=== PATIENT | female | born 1945 | race Caucasian/White ===

== ENCOUNTER 2016-10-26 09:34 | Inpatient (IN) | payer OTHER ==
[~2016-10-26] VITALS: Ht 167.6 cm; Wt 85.8 kg
[~2016-10-26 09:34] MED LIST: ACET-1757 PO; CEFD300C2 PO; CIPR750T PO; CLOP75TA22 PO; DULO30CA2 PO; ENAL10TA PO; ENOX40SY4 SQ; INSU100C5 SQ-INSULIN; METF10002 PO; OLAN5TAB9 PO; POLY17PO5 PO; SIMV10TA PO; [UNRECOGNIZED DRUG - CODE] PO; [UNRECOGNIZED DRUG - REMARK]
[2016-10-26] MEDS ORDERED: SODIUM CHLORIDE 0.9% 1,000 ML IV ONE ×2 (09:46→10:42)
[2016-10-26] MEDS ORDERED: SODIUM CHLORIDE 0.9% 1,000ML IVBOLUS ONE ×2 (10:00→11:00)
[2016-10-26 10:15] LABS: HEMOGLOBIN 14.9 g/dL (11.7-16.4)
[2016-10-26 10:26] LABS: ASPARTATE AMINO TRANSFERASE 43 U/L (15-37); BLOOD UREA NITROGEN 18 mg/dL (7-18)
[2016-10-26 10:30] LABS: IS PT STATUS REG ER OR PRE ER? YES
[2016-10-26 10:34] LABS: DIFF TOTAL CELLS COUNTED 100 CELL DIFF
[2016-10-26 10:39] LABS: PATH.CAST-FLAG NOT PRESENT; SPERM-FLAG NOT PRESENT; SRC-FLAG NOT PRESENT; XTAL-FLAG NOT PRESENT; YLC-FLAG NOT PRESENT
[2016-10-26 10:49] LABS: VERIFY COUNTS? YES
[2016-10-26] MEDS ORDERED: FAMOTIDINE 20 MG/2 ML IVP ONE (11:00)
[2016-10-26] MEDS ORDERED: MORPHINE SULFATE 4 MG/ML, 1ML IVPush PRN ×2 (11:00→14:00)
[2016-10-26] MEDS ORDERED: ONDANSETRON 2MG/ML, 2ML IVPush ONE (11:00)
[2016-10-26] MEDS ORDERED: ACETAMINOPHEN 325 MG TABLET ONE (11:25)
[2016-10-26] MEDS ORDERED: FAMOTIDINE 20 MG/2 ML ONE (11:26)
[2016-10-26] MEDS ORDERED: ACETAMINOPHEN 325 MG TABLET PO ONE (11:30)
[2016-10-26] MEDS ORDERED: CEFTRIAXONE PMX 1GM/50ML 50 ML IV ONE (12:00)
[2016-10-26] MEDS ORDERED: OMNIPAQUE 350 MG/ML, 100ML BOTTLE ONE (12:22)
[2016-10-26] MEDS ORDERED: CEFTRIAXONE PMX 1GM/50ML 50 ML ONE (13:41)
[2016-10-26] MEDS ORDERED: DOCUSATE 100 MG CAPSULE PO PRN (14:00)
[2016-10-26] MEDS ORDERED: NITROGLYCERIN 0.4 MG BOTTLE (25 TABS) SL PRN (14:00)
[2016-10-26] MEDS ORDERED: POLYETHYLENE GLYCOL 17 GM PACKET PO PRN (14:00)
[2016-10-26] MEDS: CEFTRIAXONE PMX 1GM/50ML 50 ML IV SCH (14:00)
[2016-10-26] MEDS ORDERED: ACETAMINOPHEN 325 MG TABLET PO PRN (14:00)
[2016-10-26] MEDS ORDERED: BISACODYL 10 MG SUPP PR PRN (14:00)
[2016-10-26] MEDS ORDERED: ONDANSETRON 2MG/ML, 2ML IVP PRN (14:00)
[2016-10-26] MEDS ORDERED: HEPARIN 25,000 UNITS/500ML PMX 500 ML IV PRN (15:30)
[2016-10-26] MEDS ORDERED: HEPARIN 5,000 UNITS/ML, 1ML IV ONE (15:30)
[2016-10-26] MEDS: POTASSIUM CHLORIDE 10 MEQ in SODIUM CHLORIDE 0.9% 1,000 ML IV SCH (16:34)
[2016-10-26] MEDS: METOPROLOL TARTRATE 25 MG TABLET PO SCH (18:07)
[2016-10-26] MEDS: INSULIN REGULAR 100 UNITS/ML, 3ML VIAL SQ-INSULIN SCH ×2 (18:08→20:03)
[2016-10-26 19:40] VITALS: BP 115/76
[2016-10-26] MEDS: SIMVASTATIN 20 MG TABLET PO SCH (20:46)
[2016-10-26] MEDS: DULOXETINE 30 MG CAPSULE.DR PO SCH (20:46)
[2016-10-26] MEDS: OLANZAPINE 5 MG TABLET PO SCH (20:46)
[2016-10-26] MEDS: HEPARIN 5,000 UNITS/ML, 1ML IV PRN (23:31)
[2016-10-26 23:33] LABS: IS PT STATUS REG ER OR PRE ER? NO
[2016-10-27] MEDS: CEFTRIAXONE PMX 1GM/50ML 50 ML IV SCH ×2 (01:52→20:14)
[2016-10-27 02:06] VITALS: BP 121/79
[2016-10-27 05:53] LABS: HEMOGLOBIN 12.9 g/dL (11.7-16.4)
[2016-10-27 06:01] VITALS: BP 113/73
[2016-10-27] MEDS: METOPROLOL TARTRATE 25 MG TABLET PO SCH ×2 (06:02→20:15)
[2016-10-27] MEDS: POTASSIUM CHLORIDE 10 MEQ in SODIUM CHLORIDE 0.9% 1,000 ML IV SCH ×2 (06:02→20:14)
[2016-10-27 06:04] LABS: BLOOD UREA NITROGEN 12 mg/dL (7-18)
[2016-10-27 06:11] LABS: IS PT STATUS REG ER OR PRE ER? NO
[2016-10-27 06:16] LABS: DIFF TOTAL CELLS COUNTED 100 CELL DIFF
[2016-10-27 06:18] LABS: VERIFY COUNTS? YES
[2016-10-27] MEDS: HEPARIN 5,000 UNITS/ML, 1ML IV PRN (06:27)
[2016-10-27] MEDS: INSULIN REGULAR 100 UNITS/ML, 3ML VIAL SQ-INSULIN SCH ×4 (07:00→20:34)
[2016-10-27 07:15] VITALS: BP 113/69
[2016-10-27] MEDS ORDERED: RISPERIDONE 0.5 MG TABLET PO PRN (08:00)
[2016-10-27] MEDS ORDERED: MAGNESIUM SULFATE PMX 2GM/50ML 50 ML IV ONE (08:00)
[2016-10-27] MEDS ORDERED: POTASSIUM PHOSPHATE 44 MEQ in SODIUM CHLORIDE 0.9% 500 ML IV ONE (08:00)
[2016-10-27] MEDS: CLOPIDOGREL 75 MG TABLET PO SCH (08:12)
[2016-10-27] MEDS: ENALAPRIL 10 MG TABLET PO SCH (08:12)
[2016-10-27 13:15] VITALS: BP 134/71
[2016-10-27] MEDS ORDERED: HEPARIN 1,000 UNITS/ML, 10ML ONE (16:50)
[2016-10-27] MEDS ORDERED: BIVALIRUDIN 250 MG ONE (16:50)
[2016-10-27] MEDS ORDERED: TICAGRELOR 90 MG TABLET ONE (16:50)
[2016-10-27] MEDS ORDERED: FENTANYL PF 100 MCG/2ML ONE (16:50)
[2016-10-27] MEDS ORDERED: MIDAZOLAM 1 MG/ML, 5ML ONE (16:50)
[2016-10-27] MEDS ORDERED: NITROGLYCERIN 5 MG/ML, 10ML ONE (16:50)
[2016-10-27] MEDS ORDERED: VERAPAMIL 2.5 MG/ML, 2ML ONE (16:50)
[2016-10-27] MEDS ORDERED: LIDOCAINE 2%, 20ML ONE (16:51)
[2016-10-27] MEDS ORDERED: ZIPRASIDONE 20 MG INJ IM ONE (18:30)
[2016-10-27] MEDS: DULOXETINE 30 MG CAPSULE.DR PO SCH (20:15)
[2016-10-27] MEDS: SIMVASTATIN 20 MG TABLET PO SCH (20:15)
[2016-10-27] MEDS: OLANZAPINE 5 MG TABLET PO SCH (20:17)
[2016-10-27 20:24] VITALS: BP 114/69
[2016-10-28 02:00] VITALS: BP 121/75
[2016-10-28 06:12] LABS: HEMOGLOBIN 12.8 g/dL (11.7-16.4)
[2016-10-28 06:28] LABS: BLOOD UREA NITROGEN 11 mg/dL (7-18)
[2016-10-28] MEDS: POTASSIUM CHLORIDE 10 MEQ in SODIUM CHLORIDE 0.9% 1,000 ML IV SCH (06:32)
[2016-10-28] MEDS: INSULIN REGULAR 100 UNITS/ML, 3ML VIAL SQ-INSULIN SCH ×4 (07:00→20:54)
[2016-10-28 07:28] VITALS: BP 134/80
[2016-10-28] MEDS: METOPROLOL TARTRATE 25 MG TABLET PO SCH ×2 (08:00→18:46)
[2016-10-28] MEDS: CEFTRIAXONE PMX 1GM/50ML 50 ML IV SCH ×2 (08:10→20:40)
[2016-10-28] MEDS: ENALAPRIL 10 MG TABLET PO SCH (08:11)
[2016-10-28] MEDS: CLOPIDOGREL 75 MG TABLET PO SCH (08:11)
[2016-10-28] MEDS: ENOXAPARIN 40 MG/0.4 ML SQ SCH (08:18)
[2016-10-28] MEDS ORDERED: PROPOFOL 10 MG/ML, 20ML ONE (11:03)
[2016-10-28] MEDS ORDERED: PHENYLEPHRINE 10 MG/ML ONE (11:03)
[2016-10-28] MEDS ORDERED: FILTER 0.22 MICRON FOR AMIODARONE IV PRN (12:30)
[2016-10-28] MEDS ORDERED: AMIODARONE 900 MG in DEXTROSE 5% 482 ML IV PRN (12:30)
[2016-10-28] MEDS ORDERED: AMIODARONE 150 MG in DEXTROSE 5% 100 ML IV ONE (12:30)
[2016-10-28 13:00] VITALS: BP 97/61
[2016-10-28 20:05] VITALS: BP 107/67
[2016-10-28 20:34] LABS: POTASSIUM,URINE RANDOM 34 mmol/L
[2016-10-28] MEDS: SIMVASTATIN 20 MG TABLET PO SCH (20:40)
[2016-10-28] MEDS: DULOXETINE 30 MG CAPSULE.DR PO SCH (20:40)
[2016-10-28] MEDS: OLANZAPINE 5 MG TABLET PO SCH (20:40)
[2016-10-29 01:27] VITALS: BP 116/75
[2016-10-29] MEDS: METOPROLOL TARTRATE 25 MG TABLET PO SCH ×2 (06:17→16:46)
[2016-10-29] MEDS: INSULIN REGULAR 100 UNITS/ML, 3ML VIAL SQ-INSULIN SCH ×4 (08:24→20:26)
[2016-10-29] MEDS: CLOPIDOGREL 75 MG TABLET PO SCH (08:25)
[2016-10-29] MEDS: ENOXAPARIN 40 MG/0.4 ML SQ SCH (08:25)
[2016-10-29] MEDS: ENALAPRIL 10 MG TABLET PO SCH (08:25)
[2016-10-29 08:28] VITALS: BP 120/83
[2016-10-29] MEDS: CEFTRIAXONE PMX 1GM/50ML 50 ML IV SCH ×2 (08:35→20:20)
[2016-10-29] MEDS: AMIODARONE 200 MG TABLET PO SCH ×2 (11:28→20:20)
[2016-10-29 12:50] VITALS: BP 120/74
[2016-10-29 18:59] VITALS: BP 116/75
[2016-10-29] MEDS: OLANZAPINE 5 MG TABLET PO SCH (20:20)
[2016-10-29] MEDS: DULOXETINE 30 MG CAPSULE.DR PO SCH (20:20)
[2016-10-29] MEDS: SIMVASTATIN 20 MG TABLET PO SCH (20:20)
[2016-10-30 02:53] VITALS: BP 127/73
[2016-10-30] MEDS: METOPROLOL TARTRATE 25 MG TABLET PO SCH (06:21)
[2016-10-30] MEDS: INSULIN REGULAR 100 UNITS/ML, 3ML VIAL SQ-INSULIN SCH ×3 (07:00→16:00)
[2016-10-30 08:40] LABS: HEMOGLOBIN 13.8 g/dL (11.7-16.4)
[2016-10-30] MEDS: ENALAPRIL 10 MG TABLET PO SCH (08:43)
[2016-10-30] MEDS: CLOPIDOGREL 75 MG TABLET PO SCH (08:43)
[2016-10-30] MEDS: AMIODARONE 200 MG TABLET PO SCH (08:43)
[2016-10-30] MEDS: ENOXAPARIN 40 MG/0.4 ML SQ SCH (08:44)
[2016-10-30] MEDS: CEFTRIAXONE PMX 1GM/50ML 50 ML IV SCH (08:44)
[2016-10-30 08:48] LABS: BLOOD UREA NITROGEN 16 mg/dL (7-18)
[2016-10-30 08:56] VITALS: BP 102/63
[2016-10-30] MEDS ORDERED: POTASSIUM CHLORIDE 20 MEQ TAB.ER.PRT PO ONE (11:00)
[2016-10-30] MEDS ORDERED: NITR0.4T SL (12:00)
[2016-10-30] MEDS ORDERED: RISP0.5T18 PO (12:00)
[2016-10-30] MEDS ORDERED: ENAL10TA PO (12:00)
[2016-10-30] MEDS ORDERED: AMIO200T42 PO (12:00)
[2016-10-30] MEDS ORDERED: CEFD300C2 PO (12:00)
[2016-10-30] MEDS ORDERED: METO25TA35 PO (12:00)
[2016-10-30 13:27] VITALS: BP 130/80
== END 2016-10-30 17:41 | DRG 871 ==
LOC: ED 10:37 → EDIP 13:02 → 5SO 15:04
PROVIDERS: ADMIT Internal Medicine
PROC: 0T9B70Z Drainage of Bladder with Drainage Device, Via Natural or Artificial Opening (ICD-10-PCS; 2016-10-26)
PROC: 4A023N7 Measurement of Cardiac Sampling and Pressure, Left Heart, Percutaneous Approach (ICD-10-PCS; principal; 2016-10-27)
PROC: B2111ZZ Fluoroscopy of Multiple Coronary Arteries using Low Osmolar Contrast (ICD-10-PCS; 2016-10-27)
PROC: B2151ZZ Fluoroscopy of Left Heart using Low Osmolar Contrast (ICD-10-PCS; 2016-10-27)
PROC: B246ZZ4 Ultrasonography of Right and Left Heart, Transesophageal (ICD-10-PCS; 2016-10-28)
DX: A41.50 Gram-negative sepsis, unspecified (principal); I21.4 Non-ST elevation (NSTEMI) myocardial infarction; G92 Toxic encephalopathy; N17.0 Acute kidney failure with tubular necrosis; E87.0 Hyperosmolality and hypernatremia; E78.5 Hyperlipidemia, unspecified; I71.4 Abdominal aortic aneurysm, without rupture; Z66 Do not resuscitate; I25.10 Atherosclerotic heart disease of native coronary artery without angina pectoris; B96.89 Other specified bacterial agents as the cause of diseases classified elsewhere; E11.65 Type 2 diabetes mellitus with hyperglycemia; E86.0 Dehydration; F17.210 Nicotine dependence, cigarettes, uncomplicated; F43.10 Post-traumatic stress disorder, unspecified; H26.9 Unspecified cataract; I10 Essential (primary) hypertension; I34.0 Nonrheumatic mitral (valve) insufficiency; I48.91 Unspecified atrial fibrillation; Z80.3 Family history of malignant neoplasm of breast; Z86.73 Personal history of transient ischemic attack (TIA), and cerebral infarction without residual deficits; Z82.49 Family history of ischemic heart disease and other diseases of the circulatory system; Z87.820 Personal history of traumatic brain injury; Z88.6 Allergy status to analgesic agent; Z90.710 Acquired absence of both cervix and uterus; Z90.89 Acquired absence of other organs; Z88.5 Allergy status to narcotic agent; Z88.8 Allergy status to other drugs, medicaments and biological substances
CPT/HCPCS: 36415; 74022; 74177; 76856; 80048; 80053; 80061; 81001; 82436; 82570; 82962; 83036; 83605; 83690; 83735; 84100; 84133; 84300; 84439; 84443; 84484; 85025; 85520; 85610; 86850; 86870; 86900; 86902; 86922; 86923; 87040; 87077; 87086; 87186; 93005; 93306; 93312; 93321; 93325; 93458; 96361; 96365; 96375; C1894; J0583; J0696; J1644; J1650; J1815; J2250; J2704; J3010; J3480; J3486; J3490; Q9967; J0282; J2370; J3475; J7030; J7040; J7060; S0028

== ENCOUNTER 2017-08-02 21:49 | Inpatient (IN) | payer OTHER ==
[~2017-08-02] VITALS: Ht 170.2 cm; Wt 75.4 kg
[~2017-08-02 21:49] MED LIST changes: +AMIO200T42 PO; -CEFD300C2 PO; +CEFD300C37 PO; -CLOP75TA22 PO; +CLOP75TA52 PO; +METO25TA35 PO; +NITR0.4T SL; +RISP0.5T24 PO; +TRIA0.1218 PO; -[UNRECOGNIZED DRUG - CODE] PO
[2017-08-02] MEDS ORDERED: ACETAMINOPHEN 500 MG TABLET ONE (22:47)
[2017-08-02 22:55] LABS: BASOPHILS # (AUTO) 0.01 x10^3/uL (0-0.1); BASOPHILS % (AUTO) 0 % (0-1); EOSINOPHILS # (AUTO) 0.21 x10^3/uL (0-0.4); EOSINOPHILS % (AUTO) 2 % (1-7); LYMPHOCYTES # (AUTO) 0.64 x10^3/uL (1-3.4); LYMPHOCYTES % (AUTO) 6 % (22-44); MD NO; MEAN CORPUSCULAR HEMOGLOBIN 31.6 pg (27.0-34.8); MEAN CORPUSCULAR HGB CONC 33.1 g/dL (32.4-35.8); MEAN CORPUSCULAR VOLUME 95.7 fL (80-100); MEAN PLATELET VOLUME 8.9 fL (7.4-10.4); MONOCYTES # (AUTO) 0.78 x10^3/uL (0.2-0.8); MONOCYTES % (AUTO) 7 % (2-9); NEUTROPHILS # (AUTO) 9.88 x10^3/uL (1.8-6.8); NEUTROPHILS % (AUTO) 86 % (42-75); PLATELET COUNT 232 x10^3/uL (130-400); RED BLOOD COUNT 4.62 x10^6/uL (3.82-5.3); RED CELL DISTRIBUTION WIDTH 15.8 % (9.6-15.2)
[2017-08-02] MEDS ORDERED: SODIUM CHLORIDE FLUSH 10ML SYR IVF ONE (23:00)
[2017-08-02] MEDS ORDERED: ACETAMINOPHEN 500 MG TABLET PO ONE (23:00)
[2017-08-02] MEDS ORDERED: SODIUM CHLORIDE 0.9% 1,000ML IVBOLUS ONE (23:00)
[2017-08-02 23:04] LABS: INTERNATIONAL NORMALIZED RATIO 1.07 (0.93-1.1); PROTHROMBIN TIME 11.1 Seconds (9.6-11.5)
[2017-08-02 23:07] LABS: ALANINE AMINOTRANSFERASE 26 U/L (12-78); ALBUMIN 4.2 g/dL (3.4-5.0); ANION GAP 9 mmol/L (5-15); CALCIUM 9.7 mg/dL (8.5-10.1); CHLORIDE 106 mmol/L (98-107)
[2017-08-02 23:10] LABS: ALKALINE PHOSPHATASE 46 U/L (45-117); BILIRUBIN,TOTAL 0.5 mg/dL (0.2-1.0); TOTAL PROTEIN 8.2 g/dL (6.4-8.2)
[2017-08-02] MEDS ORDERED: ATOR20TA PO (23:10)
[2017-08-02] MEDS ORDERED: ENAL20TA PO (23:10)
[2017-08-02] MEDS ORDERED: NITR50CA PO (23:10)
[2017-08-02 23:24] LABS: TROPONIN I < 0.015 ng/mL (0.000-0.045)
[2017-08-02 23:38] LABS: RAPID INFLUENZA A Negative (Negative); RAPID INFLUENZA B Negative (Negative)
[2017-08-03] VITALS (7 sets, daily range): BP systolic 133–192; BP diastolic 66–93
[2017-08-03 01:03] LABS: MICROSCOPIC INDICATED
[2017-08-03 01:27] LABS: CULTURE INDICATED? NO
[2017-08-03] MEDS ORDERED: NITROGLYCERIN 0.4 MG BOTTLE (25 TABS) SL PRN (03:00)
[2017-08-03] MEDS ORDERED: POLYETHYLENE GLYCOL 17 GM PACKET PO PRN (03:00)
[2017-08-03] MEDS ORDERED: ACETAMINOPHEN 325 MG TABLET PO SCH (03:00)
[2017-08-03] MEDS ORDERED: RISPERIDONE 0.5 MG TABLET PO PRN (03:00)
[2017-08-03 03:16] LABS: BASOPHILS # (AUTO) 0.02 x10^3/uL (0-0.1); BASOPHILS % (AUTO) 0 % (0-1); EOSINOPHILS # (AUTO) 0.19 x10^3/uL (0-0.4); EOSINOPHILS % (AUTO) 3 % (1-7); LYMPHOCYTES # (AUTO) 0.82 x10^3/uL (1-3.4); LYMPHOCYTES % (AUTO) 11 % (22-44); MD NO; MEAN CORPUSCULAR HGB CONC 33.5 g/dL (32.4-35.8); MEAN CORPUSCULAR VOLUME 95.8 fL (80-100); MEAN PLATELET VOLUME 8.7 fL (7.4-10.4); MONOCYTES # (AUTO) 0.45 x10^3/uL (0.2-0.8); MONOCYTES % (AUTO) 6 % (2-9); NEUTROPHILS # (AUTO) 5.96 x10^3/uL (1.8-6.8); NEUTROPHILS % (AUTO) 80 % (42-75); PLATELET COUNT 173 x10^3/uL (130-400); RED CELL DISTRIBUTION WIDTH 15.6 % (9.6-15.2)
[2017-08-03] MEDS: SODIUM CHLORIDE 0.9% 1,000 ML IV SCH ×3 (03:17→20:41)
[2017-08-03] MEDS: HEPARIN 5,000 UNITS/ML, 1ML SQ SCH ×3 (03:18→20:42)
[2017-08-03 03:25] LABS: ALBUMIN 3.2 g/dL (3.4-5.0); ANION GAP 9 mmol/L (5-15); CALCIUM 8.6 mg/dL (8.5-10.1); CHLORIDE 111 mmol/L (98-107); CHOLESTEROL, TOTAL 117 mg/dL (140-239); TROPONIN I 0.022 ng/mL (0.000-0.045)
[2017-08-03] MEDS: ENALAPRIL MC SCH ×3 (03:30→19:30)
[2017-08-03] MEDS ORDERED: ENALAPRIL MC SCH (03:30)
[2017-08-03 03:34] LABS: ALANINE AMINOTRANSFERASE 18 U/L (12-78); ALKALINE PHOSPHATASE 33 U/L (45-117); BILIRUBIN,TOTAL 0.4 mg/dL (0.2-1.0); CHOL/HDL RATIO 3.3; CREATININE 0.85 mg/dL (0.55-1.02); HDL CHOL % 30 % (28-40); HDL CHOLESTEROL (DIRECT) 35 mg/dL (40-60); LDL CHOLESTEROL,CALCULATED 54 mg/dL (54-169); LDL/HDL RATIO 1.5 (0.5-3.0); THYROID STIMULATING HORMONE 0.738 mIU/L (0.358-3.740); TOTAL PROTEIN 5.9 g/dL (6.4-8.2); TRIGLYCERIDES 138 mg/dL (50-200); VLDL CHOLESTEROL 28 mg/dL (0-25)
[2017-08-03 03:46] LABS: HEMOGLOBIN A1C 5.8 % (4.2-6.3)
[2017-08-03] MEDS: METOPROLOL TARTRATE 25 MG TABLET PO SCH ×2 (05:03→20:43)
[2017-08-03] MEDS: ENALAPRIL 20MG TABLET PO SCH (08:57)
[2017-08-03] MEDS: CLOPIDOGREL 75 MG TABLET PO SCH (08:58)
[2017-08-03] MEDS: CEFDINIR 300 MG CAPSULE PO SCH ×2 (08:58→20:43)
[2017-08-03] MEDS: AMIODARONE 200 MG TABLET PO SCH ×2 (08:59→20:43)
[2017-08-03] MEDS ORDERED: ENALAPRIL 10 MG TABLET PO SCH (09:00)
[2017-08-03 09:17] LABS: TROPONIN I < 0.015 ng/mL (0.000-0.045)
[2017-08-03] MEDS: INSULIN ASPART 100 UNITS/ML, PEN SQ-INSULIN SCH ×3 (12:46→20:56)
[2017-08-03] MEDS: ACETAMINOPHEN 325 MG TABLET PO PRN (14:26)
[2017-08-03] MEDS ORDERED: LABETALOL 5MG/ML, 20ML IVPush ONE (14:30)
[2017-08-03] MEDS: LABETALOL 5MG/ML, 20ML IVPush PRN ×2 (17:43→17:54)
[2017-08-03] MEDS ORDERED: LORazepam 2 MG/ML, 1ML ONE (17:57)
[2017-08-03] MEDS ORDERED: LORazepam 2 MG/ML, 1ML IVPush ONE (18:00)
[2017-08-03] MEDS ORDERED: LABETALOL 5MG/ML, 20ML IVPush PRN (18:30)
[2017-08-03] MEDS: ACETAMINOPHEN 650 MG SUPP PR PRN (18:41)
[2017-08-03] MEDS: DULOXETINE 30 MG CAPSULE.DR PO SCH (20:43)
[2017-08-03] MEDS: ATORVASTATIN 20 MG TABLET PO SCH (20:43)
[2017-08-03] MEDS ORDERED: SIMVASTATIN 5 MG TABLET PO SCH (21:00)
[2017-08-03] MEDS ORDERED: SIMVASTATIN 20 MG TABLET PO SCH (21:00)
[2017-08-03] MEDS ORDERED: PHARMACOKINETIC MONITORING MC PRN (23:00)
[2017-08-03] MEDS ORDERED: MAGNESIUM SULFATE PMX 2GM/50ML 50 ML IV ONE (23:00)
[2017-08-03] MEDS ORDERED: VANCOMYCIN PER PHARMACY MC PRN (23:00)
[2017-08-03] MEDS ORDERED: FUROSEMIDE 40 MG/4 ML ONE (23:02)
[2017-08-03] MEDS: hydrALAzine 20 MG/ML, 1ML IV PRN (23:05)
[2017-08-03] MEDS ORDERED: FUROSEMIDE 40 MG/4 ML IV ONE (23:10)
[2017-08-03] MEDS ORDERED: POTASSIUM CHLORIDE 40 MEQ in SODIUM CHLORIDE 0.9% 500 ML IV ONE (23:30)
[2017-08-03 23:54] LABS: MICROSCOPIC AUTO
[2017-08-03 23:55] LABS: CULTURE INDICATED? NO
[2017-08-04] LABS: MEAN CORPUSCULAR HEMOGLOBIN 31.5 pg (27.0-34.8); MEAN CORPUSCULAR HGB CONC 33.6 g/dL (32.4-35.8); MEAN CORPUSCULAR VOLUME 93.8 fL (80-100); MEAN PLATELET VOLUME 8.8 fL (7.4-10.4); PLATELET COUNT 180 x10^3/uL (130-400); RED BLOOD COUNT 4.31 x10^6/uL (3.82-5.3); RED CELL DISTRIBUTION WIDTH 15.4 % (9.6-15.2)
[2017-08-04] MEDS ORDERED: VANCOMYCIN 1,500 MG in SODIUM CHLORIDE 0.9% 250 ML IV ONE
[2017-08-04 00:16] VITALS: BP 152/71
[2017-08-04] MEDS: PIPERACILLIN/TAZO/PMX 3.375GM 50 ML IV SCH ×3 (00:21→16:29)
[2017-08-04 00:31] LABS: MD YES
[2017-08-04 00:36] LABS: BAND#(MANUAL) 2.15 x10^3/uL; BANDS%(MANUAL) 15 % (0-7); LYMPH#(MANUAL) 0.86 x10^3/uL (1-3.4); LYMPHS% (MANUAL) 6 % (22-44); MONOS#(MANUAL) 0.43 x10^3/uL (0.3-2.7); MONOS% (MANUAL) 3 % (2-9); SEG#(MANUAL) 10.87 x10^3/uL (1.8-6.8); SEGS% (MANUAL) 76 % (42-75)
[2017-08-04 00:37] LABS: <PLATELET ESTIMATE> ADEQUATE; <PLT MORPHOLOGY> NORMAL PLT MORPH; ANISOCYTOSIS 1+
[2017-08-04 01:22] VITALS: BP 117/61
[2017-08-04 02:01] LABS: CLOSTRIDIUM DIFFICILE ANTIGEN NEGATIVE; CLOSTRIDIUM DIFFICILE TOXIN NEGATIVE (Negative)
[2017-08-04] MEDS: ENALAPRIL MC SCH ×3 (02:37→17:27)
[2017-08-04 03:32] VITALS: BP 148/71
[2017-08-04] MEDS: HEPARIN 5,000 UNITS/ML, 1ML SQ SCH ×3 (03:50→20:43)
[2017-08-04] MEDS: METOPROLOL TARTRATE 25 MG TABLET PO SCH ×2 (05:21→17:33)
[2017-08-04] MEDS ORDERED: ALBUTEROL/IPRATROPIUM 2.5MG/0.5MG, 3 ML INLINE SCH (07:00)
[2017-08-04] MEDS: INSULIN ASPART 100 UNITS/ML, PEN SQ-INSULIN SCH ×4 (07:00→20:36)
[2017-08-04 07:27] VITALS: BP 161/73
[2017-08-04] MEDS: AMIODARONE 200 MG TABLET PO SCH ×2 (09:00→20:32)
[2017-08-04] MEDS: ENALAPRIL 20MG TABLET PO SCH (09:00)
[2017-08-04] MEDS: CLOPIDOGREL 75 MG TABLET PO SCH (09:00)
[2017-08-04] MEDS: ACETAMINOPHEN 650 MG SUPP PR PRN (09:11)
[2017-08-04] MEDS: FUROSEMIDE 40 MG/4 ML IV SCH (09:11)
[2017-08-04 12:13] VITALS: BP 155/71
[2017-08-04 19:46] VITALS: BP 155/75
[2017-08-04] MEDS: DULOXETINE 30 MG CAPSULE.DR PO SCH (20:32)
[2017-08-04] MEDS: ACETAMINOPHEN 325 MG TABLET PO PRN (20:32)
[2017-08-04] MEDS: ATORVASTATIN 20 MG TABLET PO SCH (20:32)
[2017-08-05 01:20] VITALS: BP 166/80
[2017-08-05] MEDS: ENALAPRIL MC SCH ×3 (01:39→17:30)
[2017-08-05] MEDS: HEPARIN 5,000 UNITS/ML, 1ML SQ SCH ×2 (05:06→16:00)
[2017-08-05] MEDS: METOPROLOL TARTRATE 25 MG TABLET PO SCH ×2 (05:06→17:30)
[2017-08-05] MEDS: INSULIN ASPART 100 UNITS/ML, PEN SQ-INSULIN SCH ×4 (07:00→20:41)
[2017-08-05 07:27] VITALS: BP 175/74
[2017-08-05] MEDS: CLOPIDOGREL 75 MG TABLET PO SCH (09:22)
[2017-08-05] MEDS: ENALAPRIL 20MG TABLET PO SCH (09:22)
[2017-08-05] MEDS: FUROSEMIDE 40 MG/4 ML IV SCH (09:23)
[2017-08-05] MEDS: PIPERACILLIN/TAZO/PMX 3.375GM 50 ML IV SCH ×3 (09:23→16:00)
[2017-08-05] MEDS: AMIODARONE 200 MG TABLET PO SCH ×2 (09:23→21:12)
[2017-08-05] MEDS: hydrALAzine 20 MG/ML, 1ML IV PRN (09:25)
[2017-08-05 10:16] VITALS: BP 110/55
[2017-08-05] MEDS ORDERED: ALBUTEROL/IPRATROPIUM 2.5MG/0.5MG, 3 ML INLINE PRN (11:00)
[2017-08-05 12:48] VITALS: BP 138/69
[2017-08-05 19:16] VITALS: BP 136/75
[2017-08-05] MEDS: ATORVASTATIN 20 MG TABLET PO SCH (21:12)
[2017-08-05] MEDS: DULOXETINE 30 MG CAPSULE.DR PO SCH (21:12)
[2017-08-06] MEDS: HEPARIN 5,000 UNITS/ML, 1ML SQ SCH ×3 (00:26→16:26)
[2017-08-06] MEDS: PIPERACILLIN/TAZO/PMX 3.375GM 50 ML IV SCH ×2 (00:26→09:39)
[2017-08-06 00:30] VITALS: BP 172/74
[2017-08-06] MEDS: hydrALAzine 20 MG/ML, 1ML IV PRN (00:37)
[2017-08-06] MEDS: ACETAMINOPHEN 325 MG TABLET PO PRN (00:37)
[2017-08-06] MEDS: ENALAPRIL MC SCH ×2 (03:30→09:40)
[2017-08-06 04:09] VITALS: BP 111/57
[2017-08-06 05:32] LABS: BASOPHILS # (AUTO) 0.01 x10^3/uL (0-0.1); BASOPHILS % (AUTO) 0 % (0-1); EOSINOPHILS # (AUTO) 0.01 x10^3/uL (0-0.4); EOSINOPHILS % (AUTO) 0 % (1-7); LYMPHOCYTES # (AUTO) 1.24 x10^3/uL (1-3.4); LYMPHOCYTES % (AUTO) 20 % (22-44); MD NO; MEAN CORPUSCULAR HEMOGLOBIN 31.9 pg (27.0-34.8); MEAN CORPUSCULAR HGB CONC 33.6 g/dL (32.4-35.8); MEAN PLATELET VOLUME 9.5 fL (7.4-10.4); MONOCYTES # (AUTO) 0.57 x10^3/uL (0.2-0.8); MONOCYTES % (AUTO) 9 % (2-9); NEUTROPHILS # (AUTO) 4.48 x10^3/uL (1.8-6.8); NEUTROPHILS % (AUTO) 71 % (42-75); PLATELET COUNT 151 x10^3/uL (130-400); RED BLOOD COUNT 3.92 x10^6/uL (3.82-5.3); RED CELL DISTRIBUTION WIDTH 15.6 % (9.6-15.2)
[2017-08-06 05:44] LABS: ALBUMIN 2.9 g/dL (3.4-5.0); ANION GAP 8 mmol/L (5-15); CALCIUM 8.4 mg/dL (8.5-10.1); CHLORIDE 102 mmol/L (98-107); CREATININE 0.98 mg/dL (0.55-1.02)
[2017-08-06] MEDS: METOPROLOL TARTRATE 25 MG TABLET PO SCH ×2 (06:06→18:08)
[2017-08-06 06:21] LABS: VANCOMYCIN,RANDOM 1.2 mcg/mL
[2017-08-06 07:00] VITALS: BP 160/67
[2017-08-06] MEDS ORDERED: POTASSIUM CHLORIDE 40 MEQ in SODIUM CHLORIDE 0.9% 500 ML IV ONE ×2 (07:00→15:30)
[2017-08-06] MEDS ORDERED: VANCOMYCIN 1,400 MG in SODIUM CHLORIDE 0.9% 250 ML IV SCH (08:00)
[2017-08-06] MEDS: FUROSEMIDE 40 MG/4 ML IV SCH ×2 (09:00→09:40)
[2017-08-06] MEDS: CLOPIDOGREL 75 MG TABLET PO SCH (09:39)
[2017-08-06] MEDS: ENALAPRIL 20MG TABLET PO SCH (09:39)
[2017-08-06] MEDS: AMIODARONE 200 MG TABLET PO SCH ×2 (09:39→21:16)
[2017-08-06] MEDS: INSULIN ASPART 100 UNITS/ML, PEN SQ-INSULIN SCH ×4 (09:41→21:17)
[2017-08-06 13:11] VITALS: BP 130/70
[2017-08-06] MEDS: AMPICILLIN/SULBACTAM 3 GM in SODIUM CHLORIDE 0.9% 100 ML IV SCH ×2 (16:16→22:23)
[2017-08-06] MEDS: POTASSIUM CHLORIDE 20 MEQ TAB.ER.PRT PO SCH (16:23)
[2017-08-06 18:28] VITALS: BP 128/70
[2017-08-06] MEDS: ATORVASTATIN 20 MG TABLET PO SCH (21:16)
[2017-08-06] MEDS: DULOXETINE 30 MG CAPSULE.DR PO SCH (21:16)
[2017-08-07] MEDS: HEPARIN 5,000 UNITS/ML, 1ML SQ SCH ×3 (00:49→16:31)
[2017-08-07 01:50] VITALS: BP 149/71
[2017-08-07] MEDS: AMPICILLIN/SULBACTAM 3 GM in SODIUM CHLORIDE 0.9% 100 ML IV SCH ×4 (04:59→16:31)
[2017-08-07] MEDS: METOPROLOL TARTRATE 25 MG TABLET PO SCH ×2 (05:00→17:06)
[2017-08-07 05:11] LABS: ALBUMIN 2.7 g/dL (3.4-5.0); ANION GAP 7 mmol/L (5-15); CHLORIDE 108 mmol/L (98-107); CREATININE 0.64 mg/dL (0.55-1.02)
[2017-08-07] MEDS: INSULIN ASPART 100 UNITS/ML, PEN SQ-INSULIN SCH ×5 (07:00→21:00)
[2017-08-07] MEDS: AMIODARONE 200 MG TABLET PO SCH ×2 (07:49→20:03)
[2017-08-07] MEDS: ENALAPRIL 20MG TABLET PO SCH (07:49)
[2017-08-07] MEDS: POTASSIUM CHLORIDE 20 MEQ TAB.ER.PRT PO SCH (07:49)
[2017-08-07] MEDS: FUROSEMIDE 40 MG/4 ML IV SCH (07:49)
[2017-08-07] MEDS: CLOPIDOGREL 75 MG TABLET PO SCH (07:49)
[2017-08-07 07:52] VITALS: BP 170/82
[2017-08-07] MEDS ORDERED: POTASSIUM CHLORIDE 40 MEQ in SODIUM CHLORIDE 0.9% 500 ML IV ONE (10:00)
[2017-08-07 13:51] VITALS: BP 149/77
[2017-08-07 19:40] VITALS: BP 184/82
[2017-08-07 19:57] VITALS: BP 183/84
[2017-08-07] MEDS: ATORVASTATIN 20 MG TABLET PO SCH (20:03)
[2017-08-07] MEDS: DULOXETINE 30 MG CAPSULE.DR PO SCH (20:03)
[2017-08-07] MEDS: hydrALAzine 20 MG/ML, 1ML IV PRN (20:03)
[2017-08-07] MEDS ORDERED: ZIPRASIDONE 20 MG INJ IM ONE (22:00)
[2017-08-08 01:34] VITALS: BP 185/77
[2017-08-08] MEDS: hydrALAzine 20 MG/ML, 1ML IV PRN (01:40)
[2017-08-08] MEDS: AMPICILLIN/SULBACTAM 3 GM in SODIUM CHLORIDE 0.9% 100 ML IV SCH ×4 (01:40→19:40)
[2017-08-08 02:42] VITALS: BP 133/68
[2017-08-08 05:22] LABS: CHLORIDE 110 mmol/L (98-107)
[2017-08-08 05:29] LABS: ANION GAP 7 mmol/L (5-15); CALCIUM 7.8 mg/dL (8.5-10.1); CREATININE 0.63 mg/dL (0.55-1.02)
[2017-08-08 06:16] VITALS: BP 148/77
[2017-08-08] MEDS: METOPROLOL TARTRATE 25 MG TABLET PO SCH ×2 (06:18→16:53)
[2017-08-08] MEDS: INSULIN ASPART 100 UNITS/ML, PEN SQ-INSULIN SCH ×5 (07:57→19:44)
[2017-08-08] MEDS: FUROSEMIDE 40 MG/4 ML IV SCH (08:18)
[2017-08-08] MEDS: CLOPIDOGREL 75 MG TABLET PO SCH (08:18)
[2017-08-08] MEDS: ENALAPRIL 20MG TABLET PO SCH (08:18)
[2017-08-08] MEDS: HEPARIN 5,000 UNITS/ML, 1ML SQ SCH ×3 (08:18→16:52)
[2017-08-08] MEDS: POTASSIUM CHLORIDE 20 MEQ TAB.ER.PRT PO SCH ×3 (08:18→19:40)
[2017-08-08] MEDS: AMIODARONE 200 MG TABLET PO SCH ×2 (08:18→19:41)
[2017-08-08 12:20] VITALS: BP 150/75
[2017-08-08] MEDS: ATORVASTATIN 20 MG TABLET PO SCH (19:40)
[2017-08-08] MEDS: DULOXETINE 30 MG CAPSULE.DR PO SCH (19:40)
[2017-08-08 19:42] VITALS: BP 149/75
[2017-08-08] MEDS ORDERED: RISPERIDONE 0.5 MG TABLET PO PRN (20:00)
[2017-08-08] MEDS ORDERED: OLANZAPINE 5 MG TABLET PO SCH (21:00)
[2017-08-09] MEDS: AMPICILLIN/SULBACTAM 3 GM in SODIUM CHLORIDE 0.9% 100 ML IV SCH ×3 (02:12→13:06)
[2017-08-09 03:28] VITALS: BP 145/68
[2017-08-09 05:24] LABS: ANION GAP 7 mmol/L (5-15); CALCIUM 8.6 mg/dL (8.5-10.1); CHLORIDE 112 mmol/L (98-107)
[2017-08-09 05:25] LABS: CREATININE 0.74 mg/dL (0.55-1.02)
[2017-08-09] MEDS: METOPROLOL TARTRATE 25 MG TABLET PO SCH (05:36)
[2017-08-09] MEDS: INSULIN ASPART 100 UNITS/ML, PEN SQ-INSULIN SCH ×2 (07:00→11:43)
[2017-08-09 08:20] VITALS: BP 192/74
[2017-08-09] MEDS: CLOPIDOGREL 75 MG TABLET PO SCH (08:22)
[2017-08-09] MEDS: POTASSIUM CHLORIDE 20 MEQ TAB.ER.PRT PO SCH (08:22)
[2017-08-09] MEDS: AMIODARONE 200 MG TABLET PO SCH (08:22)
[2017-08-09] MEDS: ENALAPRIL 20MG TABLET PO SCH (08:22)
[2017-08-09] MEDS: HEPARIN 5,000 UNITS/ML, 1ML SQ SCH ×2 (08:23)
[2017-08-09] MEDS: FUROSEMIDE 40 MG/4 ML IV SCH (08:23)
[2017-08-09] MEDS ORDERED: ENAL20TA PO (13:52)
[2017-08-09] MEDS ORDERED: POTA20TA6 PO (13:52)
[2017-08-09] MEDS ORDERED: AMOX1TAB64 PO (13:52)
[2017-08-09] MEDS ORDERED: FURO-93 PO (13:52)
[2017-08-09 14:45] VITALS: BP 175/83
== END 2017-08-09 16:22 | DRG 871 ==
LOC: ED 08-03 00:50 → 4EST 08-03 01:00 → 4WST 08-09 10:59 → 4EST 08-09 12:15
PROVIDERS: ADMIT Surgery; ATTEND Surgery
PROC: 0T9B70Z Drainage of Bladder with Drainage Device, Via Natural or Artificial Opening (ICD-10-PCS; principal; 2017-08-03)
DX: A41.9 Sepsis, unspecified organism (principal); J96.01 Acute respiratory failure with hypoxia; J69.0 Pneumonitis due to inhalation of food and vomit; N17.9 Acute kidney failure, unspecified; J90 Pleural effusion, not elsewhere classified; I48.2 Chronic atrial fibrillation; E11.22 Type 2 diabetes mellitus with diabetic chronic kidney disease; E87.70 Fluid overload, unspecified; R13.10 Dysphagia, unspecified; E86.0 Dehydration; N18.3 Chronic kidney disease, stage 3 (moderate); I12.9 Hypertensive chronic kidney disease with stage 1 through stage 4 chronic kidney disease, or unspecified chronic kidney disease; E78.5 Hyperlipidemia, unspecified; E87.6 Hypokalemia; I16.0 Hypertensive urgency; I25.10 Atherosclerotic heart disease of native coronary artery without angina pectoris; I34.0 Nonrheumatic mitral (valve) insufficiency; I71.4 Abdominal aortic aneurysm, without rupture; R55 Syncope and collapse; I25.82 Chronic total occlusion of coronary artery; Z87.891 Personal history of nicotine dependence; Z88.6 Allergy status to analgesic agent; Z90.710 Acquired absence of both cervix and uterus; Z87.440 Personal history of urinary (tract) infections; I25.2 Old myocardial infarction; Z86.73 Personal history of transient ischemic attack (TIA), and cerebral infarction without residual deficits; Z90.49 Acquired absence of other specified parts of digestive tract
CPT/HCPCS: 36415; 36600; 71045; 80048; 80053; 80061; 80202; 81001; 82040; 82803; 82962; 83036; 83605; 83735; 83880; 84100; 84132; 84145; 84146; 84443; 84484; 85025; 85610; 85730; 87040; 87324; 87400; 89055; 93005; 93306; 94640; 96360; J0295; J1644; J1815; J1940; J2543; J3370; J3480; J7620; 92523-GN; J0360; J2060; J3475; J7030; J7040; J7050

== ENCOUNTER → 2018-02-10 | Outpatient (CLI) | payer OTHER ==
[~2018-02-10] MED LIST changes: +AMOX1TAB64 PO; +ATOR20TA PO; +ENAL20TA PO; +FURO-93 PO; +NITR50CA PO; +POTA20TA6 PO
[2018-02-10 16:07] LABS: ANION GAP 6 mmol/L (5-15); CALCIUM 9.1 mg/dL (8.5-10.1); CHLORIDE 108 mmol/L (98-107); CREATININE 1.31 mg/dL (0.55-1.02)
== END | disposition home or self-care (01) ==
LOC: CFH 12:20
PROVIDERS: ATTEND Family Medicine
DX: I10 Essential (primary) hypertension (principal); I21.4 Non-ST elevation (NSTEMI) myocardial infarction; N28.9 Disorder of kidney and ureter, unspecified
CPT/HCPCS: 36415; 80048; 83880